=== PATIENT | female | born 1950 | race Caucasian/White ===

== ENCOUNTER 2020-03-23 11:37 | Emergency (ER) | payer SELFPAY ==
[~2020-03-23] VITALS: Ht 154.9 cm; Wt 59.9 kg
[2020-03-23 11:56] VITALS: BP_SYST 147
[2020-03-23] MEDS ORDERED: ACET325T53 PO (13:08)
[2020-03-23] MEDS ORDERED: TRAM100T28 PO (13:08)
[2020-03-23 13:26] VITALS: BP_SYST 147
== END 2020-03-23 13:27 | disposition home or self-care (01) ==
LOC: SED 11:37
DX: S62.101A Fracture of unspecified carpal bone, right wrist, initial encounter for closed fracture (principal); Z88.0 Allergy status to penicillin; Z88.2 Allergy status to sulfonamides; W18.39XA Other fall on same level, initial encounter; Y93.01 Activity, walking, marching and hiking; Y92.89 Other specified places as the place of occurrence of the external cause; Y99.8 Other external cause status
CPT/HCPCS: 99283

== ENCOUNTER 2020-03-26 10:36 | Emergency (ER) | payer SELFPAY ==
[~2020-03-26] VITALS: Ht 160 cm; Wt 54.4 kg
[2020-03-26 10:36] VITALS: BP_SYST 124
[~2020-03-26 10:36] MED LIST: ACET325T53 PO
[2020-03-26 10:50] VITALS: BP_SYST 124
== END 2020-03-26 10:50 | disposition home or self-care (01) ==
LOC: SED 10:36
DX: S52.591A Other fractures of lower end of right radius, initial encounter for closed fracture (principal); Z88.0 Allergy status to penicillin; Z88.2 Allergy status to sulfonamides; X58.XXXA Exposure to other specified factors, initial encounter; Y93.89 Activity, other specified; Y92.89 Other specified places as the place of occurrence of the external cause; Y99.8 Other external cause status
CPT/HCPCS: 99282